=== PATIENT | female | born 1940 | race Hispanic/Latino ===

== ENCOUNTER 2018-11-24 11:38 | Emergency (ER) | payer MEDICARE ==
[2018-11-24 11:38] VITALS: BMI 28.8
[2018-11-24 11:45] VITALS: RESP 18; O2SAT 98
[2018-11-24] MEDS ORDERED: Pantoprazole 40 MG in Sodium Chloride 0.9% 100 ML IV STA (11:59)
[2018-11-24] MEDS ORDERED: Sodium Chloride 0.9% 500 ML IV STA (12:00)
--- NOTE | 2018-11-24 12:04 | ED PDOC ---
Arrival/HPI - General Chief Complaint: Abdominal Pain Time Seen by Provider: 11/24/18 11:55 Historian: Patient - History of Present Illness Narrative History of Present Illness (Text): 11/24/18 12:02 A 78 year old female, whose past medical history includes hypertension, presents to the emergency department complaining of abdominal pain, back pain, and 3 episodes of vomiting starting around 06:00 this morning. Patient reports she felt normal yesterday. Patient denies any fever, diarrhea, chest pain, or any other complaints at this time. PMD: Dr. Long Health Information Technologist: Dr. Muir Past Medical History - Provider Review Nursing Documentation Reviewed: Yes - Infectious Disease Hx of Infectious Diseases: None - Cardiac Hx SC: Yes (X2) Hx Hypertension: Yes - Pulmonary Hx Respiratory Disorders: Yes Hx Chronic Obstructive Pulmonary Disease (COPD): Yes Hx Emphysema: Yes - Neurological HX Cerebrovascular Accident: Yes - HEENT Hx HEENT Disorder: (glasses) - Endocrine/Metabolic Hx Endocrine Disorders: No - Hematological/Oncological Hx Blood Transfusions: Yes (2012) Hx Blood Transfusion Reaction: No - Musculoskeletal/Rheumatological Hx Musculoskeletal Disorders: Yes Hx Back Pain: Yes - Psychiatric Hx Emotional Abuse: No Hx Physical Abuse: No Hx Substance Use: No - Surgical History Hx Appendectomy: Yes Hx Coronary Stent: Yes Hx Hysterectomy: Yes Hx Joint Replacement: Yes (Right knee , left hip) - Anesthesia Hx Anesthesia Reactions: No Hx Malignant Hyperthermia: No - Suicidal Assessment Feels Threatened In Home Enviroment: No Family/Social History - Physician Review Nursing Documentation Reviewed: Yes Family/Social History: No Known Family HX Smoking Status: Former Smoker Hx Alcohol Use: No Hx Substance Use: No Allergies/Home Meds Allergies/Adverse Reactions: Allergies fruit Adverse Reaction (Uncoded 11/24/18 11:45) ITCHING Home Medications: Home Meds Medication Instructions Recorded Confirmed Aspirin [Ecotrin] 81 mg PO DAILY 11/27/15 11/24/18 Metoprolol Tartrate [Lopressor] 50 mg PO BID 11/27/15 11/24/18 Multivitamin [One Daily] 1 tab PO DAILY 11/27/15 11/24/18 Atorvastatin [Lipitor] 20 mg PO QPM 12/16/16 11/24/18 Mometasone/Formoterol [Dulera] 1 carri IH PRN PRN 12/16/16 11/24/18 Clopidogrel [Plavix] 75 mg PO DAILY 11/24/18 11/24/18 Ezetimibe [Zetia] 10 mg PO DAILY 11/24/18 11/24/18 Valsartan/Hydrochlorothiazide 1 tab PO DAILY 11/24/18 11/24/18 [Valsartan-Hctz 160-12.5 mg Tab] Review of Systems - Physician Review All systems were reviewed & negative as marked: Yes - Review of Systems Constitutional: absent: Fevers Cardiovascular: absent: Chest Pain Gastrointestinal: Abdominal Pain, Nausea, Vomiting (3 episodes). absent: Diarrhea Physical Exam Vital Signs Reviewed: Yes Vital Signs Temp Pulse Resp BP Pulse Ox 11/24/18 11:41 98.1 F 81 18 137/79 98 Temperature: Afebrile Blood Pressure: Normal Pulse: Regular Respiratory Rate: Normal Appearance: Positive for: Well-Appearing, Non-Toxic, Comfortable Pain Distress: None Mental Status: Positive for: Alert and Oriented X 3 - Systems Exam Head: Present: Atraumatic, Normocephalic Pupils: Present: PERRL Extroacular Muscles: Present: EOMI Conjunctiva: Present: Normal Mouth: Present: Moist Mucous Membranes Neck: Present: Normal Range of Motion Respiratory/Chest: Present: Clear to Auscultation, Good Air Exchange. No: Res piratory Distress, Accessory Muscle Use Cardiovascular: Present: Regular Rate and Rhythm, Normal S1, S2. No: Murmurs Abdomen: Present: Tenderness (non-focal tenderness, worse to epigastric region). No: Distention, Peritoneal Signs Back: Present: Normal Inspection Upper Extremity: Present: Normal Inspection. No: Cyanosis, Edema Lower Extremity: Present: Normal Inspection. No: Edema Neurological: Present: GCS=15, CN II-XII Intact, Speech Normal Skin: Present: Warm, Dry, Normal Color. No: Rashes Psychiatric: Present: Alert, Oriented x 3, Normal Insight, Normal Concentration Medical Decision Making ED Course and Treatment: 11/24/18 12:03 Impression: 78 year old female with abdominal pain, back pain, and 3 episodes of vomiting starting this morning. ro gastrits pancreatits colitis Plan: -- EKG -- Chest X-ray -- Labs -- Zofran -- Protonix -- IV Fluids -- Reassess and disposition Progress Notes: EKG: Ordered, reviewed, and independently interpreted the EKG. Rate : 76 BPM Rhythm : NSR Interpretation : No ST-segment elevations or depressions, no T-wave inversions, normal intervals. Comparison : No previous EKG for comparison. 11/24/2018 12:16 Chest X-ray IMPRESSION: No active disease. Dictator: Hernán Corbett MD 11/24/18 17:[address] neg. pain all resolved in er. family declines to wait in er for ua. asking for dc - RAD Interpretation Radiology Orders: 11/24/18 11:59 CHEST PORTABLE [RAD] Stat - Medication Orders Current Medication Orders: Pantoprazole Sodium 40 mg/ (Sodium Chloride) 100 mls @ 400 mls/hr IV STAT STA Stop: 11/24/18 12:13 Sodium Chloride (Sodium Chloride 0.9%) 500 mls @ 999 mls/hr IV .Q31M STA Stop: 11/24/18 12:30 Ondansetron HCl (Zofran Inj) 4 mg IVP STAT STA Stop: 11/24/18 12:00 - Scribe Statement The provider has reviewed the documentation as recorded by the Adrienne Lindsey Provider Scribe Attestation: All medical record entries made by the Scribe were at my direction and personally dictated by me. I have reviewed the chart and agree that the record accurately reflects my personal performance of the history, physical exam, medical decision making, and the department course for this patient. I have also personally directed, reviewed, and agree with the discharge instructions and disposition. Disposition/Present on Arrival - Present on Arrival Any Indicators Present on Arrival: No History of DVT/PE: No History of Uncontrolled Diabetes: No Urinary Catheter: No History of Decub. Ulcer: No History Surgical Site Infection Following: None - Disposition Have Diagnosis and Disposition been Completed?: Yes Diagnosis: Abdominal pain Disposition: HOME/ ROUTINE Disposition Time: 15:00 Condition: STABLE Discharge Instructions (ExitCare): Acute Abdomen (Belly Pain), Adult (DC) Additional Instructions: follow up with your doctor/clinic. return to any er with worsening. Prescriptions: Famotidine [Pepcid] 20 mg PO DAILY #20 tab Referrals: [facility] [Outside] - Follow up with primary [facility] at [facility] [Outside] - Follow up with primary Yury Long MD [Primary Care Provider] - Follow up with primary Forms: [employer] (Vietnamese)
--- NOTE | 2018-11-24 12:20 | RAD ---
Date of service: 11/24/2018 HISTORY: abd pain COMPARISON: No prior. FINDINGS: LUNGS: No active pulmonary disease. PLEURA: No significant pleural effusion identified, no pneumothorax apparent. CARDIOVASCULAR: Aortic calcification Normal cardiac size. No pulmonary vascular congestion. OSSEOUS STRUCTURES: No significant abnormalities. VISUALIZED UPPER ABDOMEN: Normal. OTHER FINDINGS: None. IMPRESSION: No active disease.
[2018-11-24 12:33] LABS: BASO # 0.03 K/mm3 (0.0-2.0); BASO % 0.5 % (0.0-3.0); EOS # 0.2 (0.0-0.7); EOS % 2.4 % (1.5-5.0); HEMOGLOBIN 12.6 g/dL (12.0-16.0); LYMPH # 0.7 (1.2-3.4); LYMPH % 10.9 % (22.0-35.0); MEAN CORPUSCULAR HEMOGLOBIN 31.3 pg (25.0-35.0); MEAN PLATELET VOLUME 11.1 fl (7.0-11.0); MONO # 0.3 (0.1-0.6); MONO % 5.2 % (1.0-6.0); RBC 4.02 10^6/uL (3.5-6.1); RED CELL DISTRIBUTION WIDTH 13.7 % (11.5-14.5); WHITE BLOOD COUNT 6.6 10^3/uL (4.5-11.0)
[2018-11-24 12:43] LABS: INR 0.99; PARTIAL THROMBOPLASTIN TIME 32.7 Seconds (26.9-38.3); PROTHROMBIN TIME 11.2 SECONDS (9.4-12.5)
[2018-11-24 12:44] LABS: ALB/GLOB RATIO 1.4 (1.1-1.8); ALBUMIN 4.4 g/dL (3.0-4.8); ALT/SGPT 16 U/L (7-56); AMYLASE 92 U/L (35-125); AST/SGOT 44 U/L (14-36); BLOOD UREA NITROGEN 30 mg/dL (7-21); CALCIUM 9.7 mg/dL (8.4-10.5); GFR NON-AFRICAN AMERICAN > 60; LIPASE 109 U/L (23-300)
[2018-11-24 12:53] LABS: TROPONIN I < 0.01 ng/mL
[2018-11-24] MEDS ORDERED: Iohexol 350 MG/100 ML VIAL ONE (14:12)
--- NOTE | 2018-11-24 14:54 | CT ---
Date of service: 11/24/2018 PROCEDURE: CT Abdomen and Pelvis with contrast HISTORY: upper abd pain COMPARISON: None. TECHNIQUE: Contrast dose: 100 cc of Omni 350 Radiation dose: Total exam DLP = 879.32 mGy-cm. This CT exam was performed using one or more of the following dose reduction techniques: Automated exposure control, adjustment of the mA and/or kV according to patient size, and/or use of iterative reconstruction technique. FINDINGS: LOWER THORAX: There is a moderate size hiatal hernia measuring 5.7 cm diameter. LIVER: Unremarkable. No gross lesion or ductal dilatation. Simple cysts are seen in the liver GALLBLADDER AND BILE DUCTS: Unremarkable. PANCREAS: Unremarkable. No gross lesion or ductal dilatation. SPLEEN: Unremarkable. ADRENALS: Unremarkable. No mass. KIDNEYS AND URETERS: Unremarkable. No hydronephrosis. No solid mass. VASCULATURE: Unremarkable. No aortic aneurysm. No aortic atherosclerotic calcification or mural plaque present. BOWEL: Unremarkable. No obstruction. No gross mural thickening. APPENDIX: Normal appendix. PERITONEUM: Unremarkable. No free fluid. No free air. LYMPH NODES: Unremarkable. No enlarged lymph nodes. BLADDER: Unremarkable. REPRODUCTIVE: Unremarkable. BONES: Multilevel disc degeneration OTHER FINDINGS: There is a large lipoma deep to the right gluteal muscle. This measures 4 x 13 cm transversely. IMPRESSION: No acute intra-abdominal findings.
[2018-11-24 15:16] VITALS: BP 122/79; PULSE 77; TEMP 98
--- NOTE | 2018-11-24 23:25 | CARD ---
APPROVED REPORT Date of service: 11/24/2018 EKG Measurement Heart [id number] <Conclusion> Normal sinus rhythm Normal ECG
== END 2018-11-24 15:23 | disposition home or self-care (01) ==
LOC: ED 11:38
DX: R10.9 Unspecified abdominal pain (principal); I10 Essential (primary) hypertension; Z87.891 Personal history of nicotine dependence; J44.9 Chronic obstructive pulmonary disease, unspecified
CPT/HCPCS: 71045; 74177; 80053; 82150; 82550; 83615; 83690; 84484; 85025; 85610; 85730; 93005; 96374; 96375; 99283; C9113; J2405; J7040; Q9967

== ENCOUNTER 2018-11-30 06:53 | Outpatient (CLI) | payer MEDICARE | END 2018-11-30 06:54 | disposition home or self-care (01) | LOC: CARDIO 06:53 | DX: I25.10 Atherosclerotic heart disease of native coronary artery without angina pectoris (principal) ==